=== PATIENT | female | born 1960 | race African-American/Black ===

== ENCOUNTER 2023-12-13 12:51 | Inpatient (IN) | payer OTHER ==
[~2023-12-13] VITALS: Ht 160 cm; Wt 90.7 kg
[2023-12-13 14:22] LABS: BASOPHILS % 0.6 % (0.0-2.0); EOSINOPHILS % 1.3 % (0.0-5.0); HEMATOCRIT. 38.4 % (36.0-48.0); HEMOGLOBIN. 12.8 g/dL (12.0-16.0); LYMPHOCYTES % 17.8 % (20.0-50.0); MEAN CORPUSCULAR HGB CONC 33.2 g/dL (31.0-37.0); MEAN CORPUSCULAR VOLUME 87.2 fL (81.0-99.0); MEAN PLATELET VOLUME 7.8 fl (7.4-10.4); MONOCYTES % 5.7 % (2.0-8.0); NEUTROPHILS % 74.6 % (40.0-76.0); PLATELET 346 x1000/uL (130-400)
[2023-12-13] MEDS: ONDANSETRON 4MG ODT PO ONE (14:26)
[2023-12-13] MEDS: SODIUM CHLORIDE 0.9% 1,000 ML IV ONE (14:41)
[2023-12-13] MEDS: MECLIZINE 25MG TABLET PO ONE (14:44)
[2023-12-13 14:57] LABS: ALANINE AMINOTRANSFERASE 31 IU/L (10-49); ALBUMIN 4.7 g/dL (3.2-4.8); ASPARTATE AMINOTRANSFERASE 19 IU/L (<34); BILIRUBIN TOTAL 0.5 mg/dL (0.1-1.0); CALCIUM 9.5 mg/dL (8.7-10.4); CARBON DIOXIDE 29 mEq/L (21-32); CHLORIDE 102 mEq/L (98-107); CREATININE 0.7 mg/dL (0.6-1.0); GLUCOSE 114 mg/dL (70-105); POTASSIUM 4.7 mEq/L (3.5-5.1); PROTEIN TOTAL 7.8 g/dL (6.0-8.3); SODIUM 139 mEq/L (136-145); UREA NITROGEN BLOOD 12 mg/dL (9-23)
[2023-12-13 15:01] LABS: ETHANOL BLOOD < 10 mg/dL (<10); TROPONIN I HIGH SENSITIVITY < 4 ng/L (3.0-34)
[2023-12-13] MEDS: METOCLOPRAMIDE HCL 10MG/2ML VIAL IV ONE (16:34)
[2023-12-13 16:59] LABS: CLARITY URINE CLEAR (CLEAR); COLOR URINE YELLOW (YELLOW); GLUCOSE URINE NEGATIVE (NEGATIVE); KETONES URINE NEGATIVE (NEGATIVE); LEUKOCYTE ESTERASE URINE NEGATIVE (NEGATIVE); NITRITE URINE NEGATIVE (NEGATIVE); OCCULT BLOOD URINE NEGATIVE (NEGATIVE); PROTEIN URINE NEGATIVE (NEGATIVE); SPECIFIC GRAVITY URINE 1.013 (1.005-1.030)
[2023-12-13 17:09] LABS: *AMPHETAMINES SCREEN URINE NEGATIVE (NEGATIVE); *BARBITURATES SCREEN URINE NEGATIVE (NEGATIVE); *BENZODIAZEPINES SCREEN URINE NEGATIVE (NEGATIVE); *COCAINE SCREEN URINE NEGATIVE (NEGATIVE); CANNABINOID URINE SCREEN NEGATIVE (NEGATIVE); ECSTASY MDMA SCREEN URINE NEGATIVE (NEGATIVE); METHADONE URINE SCREEN Neg (NEGATIVE); OPIATES URINE SCREEN NEGATIVE (NEGATIVE); PHENCYCLIDINE URINE SCREEN NEGATIVE (NEGATIVE)
[2023-12-14] VITALS: BP 159/87; PULSE 90; RESP 17; TEMP 97.9
[2023-12-14] MEDS ORDERED: MECLIZINE 25MG TABLET PO SCH (00:15)
[2023-12-14] MEDS: ACETAMINOPHEN 325MG TABLET PO PRN (02:39)
[2023-12-14] MEDS: MECLIZINE 25MG TABLET PO SCH (02:53)
[2023-12-14] MEDS ORDERED: LORA-250 PO (04:43)
[2023-12-14] MEDS ORDERED: LOSA100T33 MT (04:43)
[2023-12-14] MEDS ORDERED: ONDA4TAB50 PO (04:43)
[2023-12-14] MEDS ORDERED: AMLO5TAB88 PO (04:43)
[2023-12-14 07:01] LABS: BASOPHILS % 0.5 % (0.0-2.0); EOSINOPHILS % 1.3 % (0.0-5.0); HEMATOCRIT. 34.8 % (36.0-48.0); HEMOGLOBIN. 11.8 g/dL (12.0-16.0); LYMPHOCYTES % 28.7 % (20.0-50.0); MEAN CORPUSCULAR HEMOGLOBIN 29.6 pg (28.0-32.0); MEAN PLATELET VOLUME 7.9 fl (7.4-10.4); NEUTROPHILS % 60.5 % (40.0-76.0); PLATELET 340 x1000/uL (130-400); RED CELL DISTRIBUTION WIDTH 13.8 % (11.6-14.6); WHITE BLOOD COUNT 6.1 x1000/uL (4.5-11.0)
[2023-12-14 07:07] LABS: CALCIUM 9.3 mg/dL (8.7-10.4); CARBON DIOXIDE 29 mEq/L (21-32); CHLORIDE 104 mEq/L (98-107); CHOLESTEROL 169 mg/dL (<200); CREATININE 0.7 mg/dL (0.6-1.0); GLUCOSE 102 mg/dL (70-105); HDL CHOLESTEROL 50 mg/dL (>65); LDL CHOLESTEROL 112 mg/dL (5-100); SODIUM 139 mEq/L (136-145); TRIGLYCERIDE 57 mg/dL (0-150); UREA NITROGEN BLOOD 10 mg/dL (9-23)
[2023-12-14 08:00] VITALS: BP 133/75; PULSE 74; RESP 18; TEMP 97.3
[2023-12-14] MEDS: ENOXAPARIN 40MG/0.4ML SYR SUBCUT SCH (08:26)
[2023-12-14] MEDS: ASPIRIN 81MG TABLET PO SCH (08:27)
[2023-12-14] MEDS: PANTOPRAZOLE 40MG DR TABLET PO SCH (08:27)
[2023-12-14 09:20] LABS: HEPATITIS B SURFACE ANTIGEN NEGATIVE (Negative); HEPATITIS C AB NON REACTIVE (Neg) (Negative)
[2023-12-14 12:00] VITALS: BP 136/82; PULSE 77; RESP 18; TEMP 97.4
[2023-12-14 16:00] VITALS: BP 122/59; PULSE 76; RESP 18; TEMP 97.5
[2023-12-14] MEDS ORDERED: LORAZEPAM 0.5MG TABLET PO PRN (17:30)
[2023-12-14 20:00] VITALS: BP 130/74; PULSE 94; RESP 19; TEMP 97.9
[2023-12-14 20:01] VITALS: BP_SYST 148; BP_SYST 153; BP_DIAS 79; BP_DIAS 85
[2023-12-15] VITALS: BP 140/79; PULSE 75; RESP 20; TEMP 97.9
[2023-12-15 04:00] VITALS: BP 136/72; PULSE 98; RESP 19; TEMP 97.9
[2023-12-15 07:58] VITALS: BP 137/60; PULSE 69; RESP 19; TEMP 97.3
[2023-12-15 07:59] VITALS: BP 140/67; PULSE 66
[2023-12-15] MEDS: ONDANSETRON HCL 4MG/2ML INJ IV PRN (11:17)
[2023-12-15] MEDS ORDERED: MED4 MT (11:50)
[2023-12-15] MEDS ORDERED: MECL-264 PO (11:50)
[2023-12-15 11:59] VITALS: BP 125/66; PULSE 93; RESP 18; TEMP 98
[2023-12-15 12:36] LABS: BASOPHILS % 0.8 % (0.0-2.0); EOSINOPHILS % 2.1 % (0.0-5.0); HEMATOCRIT. 38.3 % (36.0-48.0); HEMOGLOBIN. 12.8 g/dL (12.0-16.0); LYMPHOCYTES % 32.1 % (20.0-50.0); MEAN CORPUSCULAR HEMOGLOBIN 29.4 pg (28.0-32.0); MEAN CORPUSCULAR HGB CONC 33.4 g/dL (31.0-37.0); MEAN CORPUSCULAR VOLUME 88.1 fL (81.0-99.0); MONOCYTES % 8.3 % (2.0-8.0); NEUTROPHILS % 56.7 % (40.0-76.0); PLATELET 377 x1000/uL (130-400); RED BLOOD CELL COUNT 4.35 mill/uL (4.2-5.4); RED CELL DISTRIBUTION WIDTH 14.2 % (11.6-14.6); WHITE BLOOD COUNT 6.2 x1000/uL (4.5-11.0)
[2023-12-15] MEDS: PREDNISONE 20MG TABLET PO NR (12:49)
[2023-12-15 13:07] LABS: CALCIUM 9.2 mg/dL (8.7-10.4); CARBON DIOXIDE 29 mEq/L (21-32); CHLORIDE 103 mEq/L (98-107); CREATININE 0.8 mg/dL (0.6-1.0); GLUCOSE 151 mg/dL (70-105); POTASSIUM 3.9 mEq/L (3.5-5.1); SODIUM 139 mEq/L (136-145); UREA NITROGEN BLOOD 13 mg/dL (9-23)
[2023-12-15 13:31] VITALS: BP 125/66; PULSE 93; TEMP 96.7; O2SAT 96
== END 2023-12-15 15:25 | disposition home or self-care (01) | DRG 74 ==
LOC: ER 12:51 → 7WST 16:27 → EDBEDREQ 16:36 → EDBEDREQTM 16:36
PROVIDERS: ADMIT Internal Medicine; ATTEND Internal Medicine
DX: G90.8 Other disorders of autonomic nervous system (principal); I10 Essential (primary) hypertension; J45.909 Unspecified asthma, uncomplicated; Z88.2 Allergy status to sulfonamides
CPT/HCPCS: 36415; 70496; 70551; 71045; 80048; 80053; 80061; 80305; 80320; 81003; 84484; 85025; 86705; 87340; 97162; 99285; J1650; J2405; J2765; J7030; J7512; J8597; Q0162; G0480